=== PATIENT | male | born 1970 | race Caucasian/White ===

== ENCOUNTER 2020-10-07 09:45 | Emergency (ER) | payer OTHER ==
[2020-10-07 09:55] VITALS: BP 147/93; PULSE 72; TEMP 97.7; BMI 30.4
[2020-10-07] MEDS ORDERED: KETOROLAC TROMETHAMINE 30 MG/1 ML VIAL IM ONE (10:11)
[2020-10-07] MEDS ORDERED: LIDOCAINE 5% TOPICAL PATCH TP ONE (10:11)
[2020-10-07] MEDS ORDERED: KETOROLAC TROMETHAMINE 30 MG/1 ML VIAL ONE (10:27)
[2020-10-07] MEDS ORDERED: LIDOCAINE 5% TOPICAL PATCH ONE (10:27)
[2020-10-07] MEDS ORDERED: LIDOCAINE PATCH REMOVAL MC SCH (22:00)
== END 2020-10-07 12:15 | disposition home or self-care (01) ==
LOC: FER 09:45
PROC: 3E0233Z Introduction of Anti-inflammatory into Muscle, Percutaneous Approach (ICD-10-PCS; principal; 2020-10-07)
DX: R07.89 Other chest pain (principal); M62.838 Other muscle spasm
CPT/HCPCS: 71046-TC-FY; 99285-25